=== PATIENT | male | born 1940 | race Caucasian/White ===

== ENCOUNTER 2020-04-23 07:31 | Emergency (ER) | payer BC, SELFPAY ==
--- NOTE | ~2020-04-23 | CT_ITS ---
EXAMINATION: CT brain wo con EXAM DATE: 04/23/2020 07:39 INDICATION: Right facial hemiparesis, facial droop. Stroke. TECHNIQUE: Spiral CT of the head was performed without contrast. Axial, coronal and sagittal images were reviewed. The dose-length product (DLP) for this examination was 681.00 mGy-cm. The exposure w as tailored according to patient size, and iterative reconstruction (ASIR) was used as additional dos e reduction technique. Comparison is made to prior examination from 07/11/2006. FINDINGS: There is no acute intraparenchymal hemorrhage. No evidence of intraparenchymal brain mass lesion. No evidence of acute infarction. Please note that initial head CT has limited sensitivity f or small or acute infarctions. There is moderate periventricular and subcortical hypodensity, nonspec ific but probably related to small vessel ischemic disease. There is moderate prominence of the sul ci and ventricles related to cerebral atrophy. There is intracranial carotid arteriosclerosis. The re are no extra-axial collections. There is no mass effect or midline shift. Patient has had bilate ral ocular lens surgery. Soft tissue is unremarkable. The visualized sinuses and mastoid air cells are well aerated. IMPRESSION: 1. No acute intracranial findings. 2. Chronic age related findings. As per stroke protocol, I called these results, discussed with Marcel Paul MD at 04/23/2020 07: 41 CDT. Reviewed, dictated and finalized at location A. IMPRESSION: 1. No acute intracranial findings. 2. Chronic age related findings. As per stroke protocol, I called these results, discussed with Marcel dalton MD at 04/23/2020 07:41 CDT.
--- NOTE | ~2020-04-23 | XR_ITS ---
EXAMINATION: XR chest 1V portable EXAM DATE: 04/23/2020 07:56 INDICATION: Slurred speech. Altered mental status. TECHNIQUE: Portable AP frontal chest x-ray was obtained. Comparison is made to prior examination from 04/18/2019, 08/27/2017. FINDINGS: There is large gastroesophageal hiatal hernia making the cardiac silhouette difficult to as sess. There is adjacent subsegmental atelectasis. No definite superimposed acute airspace disease. No pneumothorax or sizable pleural effusion. There are bony degenerative changes. IMPRESSION: 1. Large gastroesophageal hiatal hernia. Reviewed, dictated and finalized at location A.
[2020-04-23 07:35] VITALS: BP 100/68; PULSE 123; RESP 30; TEMP 35.9; O2SAT 88
--- NOTE | 2020-04-23 07:46 | ED.NEUROSD ---
HPI - Neuro Symptoms/Deficit General Chief Complaint: Altered Mental Status Stated Complaint: stroke Time Seen by Provider: 04/23/20 07:35 History of Present Illness HPI Narrative: Patient is an 80-year-old male who presents the ER with strokelike symptoms. Patient was found on the toilet by his around 7 AM. He was altered with agonal breathing with right-sided facial droop and right-sided weakness. Last known normal was last night. No previous stroke but patient does have history of Parkinson's. Accu-Chek in the 200s for EMS. Patient went immediately to CT scan. Upon returning to the room patient is awake alert and oriented x3. There is no facial droop or neurologic deficit at this time. Patient reports he did have a bout of emesis earlier today. No other complaints of pain. Related Data Home Medications Medication Instructions Recorded Confirmed Unable to Obtain Home Medications 08/12/19 08/12/19 Allergies Allergy/AdvReac Type Severity Reaction Status Date / Time No Known Allergies Allergy Unknown Uncoded 08/12/19 10:57 Review of Systems Review of Systems: All systems reviewed & are unremarkable except as noted in HPI and below Constitutional: Constitutional: Denies chills and Denies fever(s) ENT: Denies dizziness and Denies sore throat Cardiovascular: Cardiovascular: Denies chest pain, Denies rapid heart rate and Denies radiating jaw, neck or arm pain Respiratory: Respiratory: Denies cough and Denies dyspnea Gastrointestinal: Gastrointestinal: Denies abdominal pain, Reports nausea and Reports vomiting Neurologic: Reports focal weakness and Denies numbness PMFSH Social History Social History Smoking status: Former smoker Smoking end date: 07/21/1965 Alcohol intake: never Gender identity (if verbalized by the patient): Male Exam Narrative: Exam Narrative: GENERAL: Chronically ill-appearing, well-nourished, and in no acute distress. HEAD: Normocephalic, atraumatic. EYES: PERRL and EOMI. ENT: Dry mucous membranes with dried emesis in the corners. CHEST: Clear to auscultation. No respiratory distress. HEART: Regular rate and rhythm. Normal peripheral pulses. ABDOMEN: Soft, nontender, nondistended. EXTREMITIES: Normal range of motion. No edema. SKIN: Warm, dry, no rash. NEURO: No focal deficits. Cranial nerves II through XII intact. Clear speech. No upper or lower extremity drift. Sensation intact. Alert and oriented x3. Course Reevaluation(s) Reevaluation #1: Went in to reevaluate the patient and he was developing some gurgling respirations. Patient then became unresponsive and started vomiting yellow-brown liquid material. He was immediately rolled into the left lateral decubitus position and suctioned. Patient did not have any spontaneous respirations at that time and a CODE BLUE was initiated. Date: 04/23/20 Time: 08:05 Reevaluation #2: Patient with return of spontaneous circulation x1 during CODE BLUE that lasted for less than 30 seconds. at the bedside. She would like to terminate resuscitative efforts and focus on comfort driven measures. She is concerned that his long-term viability is poor given the fact that his oxygen saturations are not going above 65% and that he cannot sustain an adequate heart rate on his own. ET tube placement has been confirmed x2. Patient had no spontaneous respiratory efforts. He went into asystole at 0828 and was pronounced with at the bedside. Date: 04/23/20 Time: 08:28 Reevaluation #3: Discussed case with Dr. Healy who is on-call for patient's PCP. He feels the primary care doctor would have no issue signing the certificate. Date: 04/23/20 Time: 09:14 Vital Signs Vital signs: Vital Signs Temperature 96.6 F L 04/23/20 07:35 Pulse Rate 123 H 04/23/20 07:35 Respiratory Rate 30 H 04/23/20 07:35 Blood Pressure 100/68 04/23/20 07:35 Pulse Oximetry 88 L 04/23/20
[2020-04-23] MEDS: SODIUM CHLORIDE 0.9% IV 1,000 ML 999 ML IV CONT ×2 (07:55→08:23)
--- NOTE | 2020-04-23 07:55 | PC.NURSE ---
IVF initiated, note pt respirations worsening, noisy. Dr. Paul made aware. Pt's cough ineffective, note pt begins to have emesis of large amt of dark brown liquid. Rolled onto side to protect airway, Dr. Paul assisting with suctioning, pt again goes unresponsive. Respirations assisted with BVM. Pt still continues to vomit copious amounts of dark brown colored fluid. Pulse dropping. Preparing to intubate to protect airway. Pt's pulse becoming weaker and difficult to palpate. Chest compressions initiated. See code blue sheet for further.
--- NOTE | 2020-04-23 08:04 | PC.NURSE ---
Pt intubated with first attempt per Dr. Paul with 7.5 ETT. Pt continues to vomit copious amounts of brown liquid, >1000cc at present. Suctioning prn, deep suction per ETT. remains at bedside during resuscitation.
[2020-04-23 08:05] LABS: Basophils Percent Auto 0.1 % (0.2-1.2); Hematocrit 37.2 % (42.0-52.0); Immature Granulocyte Absolute 0.09 K/mm3 (0.00-0.031); Immature Granulocyte Percent A 0.6 % (0-0.5); Lymphocytes Absolute Auto 1.03 K/mm3 (0.9-3.2); Lymphocytes Percent Auto 7.1 % (18.3-44.2); Mean Corpuscular HGB Conc 29.6 g/dl (32-36); Mean Corpuscular Hemoglobin 25.9 pg (26-34); Mean Corpuscular Volume 87.5 fl (80-100); Mean Platelet Volume 10.9 fl (7.4-10.4); Monocytes Absolute Auto 0.7 K/mm3 (0.1-0.6); Monocytes Percent Auto 4.8 % (2.6-8.5); Neutrophils Absolute Auto 12.7 K/mm3 (1.3-6.7); Neutrophils Percent Auto 87.4 % (45.5-73.1); Platelet Count Result 424 k/mm3 (150-375); Red Blood Count 4.25 M/mm3 (4.6-6.20); Red Cell Distribution Width 15.4 % (11.5-14.5); White Blood Count 14.5 K/mm3 (4.5-10.0)
[2020-04-23 08:14] LABS: Ovalocytes 1+ (NORMAL); Platelet Estimate Adequate (Adequate); Poikilocytosis 1+ (NORMAL)
[2020-04-23 08:16] LABS: INR 1.1; Prothrombin Time 13.5 Seconds (11.1-14.7)
[2020-04-23 08:18] LABS: Anion Gap 25 mmol/L (8-16); Blood Urea Nitrogen 24 mg/dL (9-20); Carbon Dioxide 21 mmol/L (22-30); Chloride 100 mmol/L (98-107); Estimated Glomerular Filt Rate 49; Glucose 335 mg/dL (75-110); Potassium 3.5 mmol/L (3.4-5.0); Sodium 146 mmol/L (137-145)
--- NOTE | 2020-04-23 08:26 | ECG_ITS ---
Measurements Intervals [place] Rate: 127 P: 46 NH: 154 QRS: 30 QRSD: 106 T: 22 QT: 326 QTc: 475 Interpretive Statements SINUS TACHYCARDIA BASELINE ARTIFACT- I, II, III, AVR, AVL, AVF, V5-V6 ABNORMAL ECG Electronically Signed On 04-23-2020 16:50:08 CDT by Leroy Lima D.O.
--- NOTE | 2020-04-23 08:28 | PC.NURSE ---
Dr. Paul calls code. Pt has no spontaneous respirations or pulse.
[2020-04-23 08:29] LABS: Troponin I 0.032 ng/mL (0.000-0.034)
--- NOTE | 2020-04-23 08:56 | PC.NURSE ---
[address] [facility] contacted. Patient is not a candidate for organ donation. Referral number: [id number] Dinesh the instructor product inspection contacted at this time. Stated that the patient was not a candidate for an autopsy.
--- NOTE | 2020-04-23 09:09 | PC.NURSE ---
Family at bedside. Educated on equipment that was used during the code that remains in place until the traditional maori health practitioner gives decision to remove.
--- NOTE | 2020-04-23 10:56 | PC.NURSE ---
Family leaves bedside. No further questions. Explained that will remove all tubes per instruction of stationary fireman and contact pt's home of choice.
--- NOTE | 2020-04-23 11:02 | PC.NURSE ---
ETT, OG tube removed intact. IV's removed intact.
--- NOTE | 2020-04-23 11:10 | PC.NURSE ---
[facility] [facility] contacted at this time and requested that we take the patients body to the [facility] [place].
== END 2020-04-23 11:20 | disposition expired ==
PROVIDERS: Emergency Provider Emergency Medicine; PCP Internal Medicine
DX: J96.90 Respiratory failure, unspecified, unspecified whether with hypoxia or hypercapnia (principal); T17.918A Gastric contents in respiratory tract, part unspecified causing other injury, initial encounter; I46.9 Cardiac arrest, cause unspecified; R29.810 Facial weakness; R53.1 Weakness; G20 Parkinson's disease; Z87.891 Personal history of nicotine dependence; K44.9 Diaphragmatic hernia without obstruction or gangrene; R00.0 Tachycardia, unspecified; X58.XXXA Exposure to other specified factors, initial encounter
CPT/HCPCS: 31500; 36415; 36556; 70450; 71045; 80048; 84484; 85025; 85610; 85730; 92950; 93005; 96360; 99285; J0171; J0330; J7030